=== PATIENT | male | born 1940 | race Caucasian/White ===

== ENCOUNTER 2019-11-24 14:15 | Observation (INO) | payer MEDICARE ==
[~2019-11-24] VITALS: Ht 175.3 cm; Wt 123.1 kg
[2019-11-24] MEDS: LIDODERM REMOVE PATCH NOTE XX SCH (05:00)
[~2019-11-24 14:15] MED LIST: AMOX1TAB64 PO; LIDO700A20 TD; MELA5TAB14 PO; NYST15PO2 TP; VIT1TABL89 PO
[2019-11-24 14:56] LABS: MEAN CORPUSCULAR HEMOGLOBIN 40.5 pg (27.5-34.5); MEAN CORPUSCULAR HGB CONC 32.8 g/dL (33.2-36.2); MEAN CORPUSCULAR VOLUME 123.4 fL (81-97); MEAN PLATELET VOLUME 7.5 fL (7.4-10.4); PLATELET COUNT 285 x10^3/uL (130-400); RED CELL DISTRIBUTION WIDTH 17.9 % (9.4-14.8)
[2019-11-24] MEDS ORDERED: VANCOMYCIN PER PHARMACY MC ONE (15:00)
[2019-11-24] MEDS ORDERED: CEFTRIAXONE PMX 1GM/50ML 50 ML IVPB ONE (15:00)
[2019-11-24] MEDS ORDERED: NYSTATIN OINT 15GM TP SCH (15:00)
[2019-11-24] MEDS ORDERED: NYSTATIN/TRIAMCINOLONE OINT 15GM TP SCH (15:00)
[2019-11-24] MEDS ORDERED: ACETAMINOPHEN 500 MG TABLET PO ONE (15:00)
[2019-11-24 15:10] LABS: ALBUMIN 2.7 g/dL (3.4-5.0); ANION GAP 3 mmol/L (5-15); CALCIUM 8.7 mg/dL (8.5-10.1); CHLORIDE 110 mmol/L (98-107)
[2019-11-24 15:13] LABS: ALANINE AMINOTRANSFERASE 17 U/L (12-78); ALKALINE PHOSPHATASE 61 U/L (45-117); BILIRUBIN,TOTAL 0.5 mg/dL (0.2-1.0); CREATININE 1.55 mg/dL (0.7-1.3); TOTAL PROTEIN 10.4 g/dL (6.4-8.2)
[2019-11-24] MEDS ORDERED: CEFTRIAXONE PMX 1GM/50ML 50 ML ONE (15:15)
[2019-11-24] MEDS ORDERED: ACETAMINOPHEN 500 MG TABLET ONE (15:15)
[2019-11-24 15:25] LABS: BASOPHILS # (AUTO) 0.02 x10^3/uL (0-0.1); BASOPHILS % (AUTO) 1 % (0-1); EOSINOPHILS # (AUTO) 0.19 x10^3/uL (0-0.4); EOSINOPHILS % (AUTO) 4 % (1-7); LYMPHOCYTES # (AUTO) 0.97 x10^3/uL (1-3.4); LYMPHOCYTES % (AUTO) 19 % (22-44); MD SCAN; MONOCYTES # (AUTO) 0.22 x10^3/uL (0.2-0.8); MONOCYTES % (AUTO) 4 % (2-9); NEUTROPHILS # (AUTO) 3.64 x10^3/uL (1.8-6.8); NEUTROPHILS % (AUTO) 72 % (42-75)
[2019-11-24] MEDS ORDERED: NYSTATIN/TRIAMCINOLONE OINT 15GM TP ONE (15:30)
[2019-11-24] MEDS ORDERED: PLEASE ENTER HEIGHT AND WEIGHT MC SCH (15:30)
[2019-11-24] MEDS ORDERED: NYSTATIN OINT 15GM TP ONE (15:30)
[2019-11-24] MEDS ORDERED: VANCOMYCIN 2,500 MG in SODIUM CHLORIDE 0.9% 500 ML IV ONE (16:00)
--- NOTE | 2019-11-24 16:20 | NUR ---
PT RESTING ON GURNEY. PLACED WAFFLE MATRESS UNDER PT. BARRIER CREAM APPLIED. ANTI FUNGAL CREAM HAS ALSO BEEN APPLIED.
[2019-11-24 16:27] LABS: MICROSCOPIC AUTO
[2019-11-24 16:28] LABS: CULTURE INDICATED? YES
[2019-11-24] MEDS ORDERED: ACETAMINOPHEN 325 MG TABLET PO PRN (17:00)
[2019-11-24 17:49] VITALS: BP 146/79
[2019-11-24] MEDS: CARVEDILOL 6.25 MG TABLET PO SCH (18:00)
[2019-11-24] MEDS: HEPARIN 5,000 UNITS/ML, 1ML SQ SCH (18:40)
[2019-11-24] MEDS: MELATONIN 5 MG TABLET PO SCH (20:26)
[2019-11-24] MEDS: LIDODERM 5% PATCH TD SCH (20:26)
[2019-11-24 20:40] VITALS: BP 136/80
[2019-11-24] MEDS: NYSTATIN TOPICAL POWDER 15GM TP SCH (22:12)
[2019-11-25] MEDS: HEPARIN 5,000 UNITS/ML, 1ML SQ SCH ×3 (01:59→18:04)
[2019-11-25 02:16] VITALS: BP 142/82
[2019-11-25] MEDS: NYSTATIN TOPICAL POWDER 15GM TP SCH ×4 (05:04→20:15)
[2019-11-25] MEDS: CARVEDILOL 6.25 MG TABLET PO SCH ×2 (05:05→17:55)
[2019-11-25 06:11] LABS: ANION GAP 4 mmol/L (5-15); CALCIUM 8.3 mg/dL (8.5-10.1); CHLORIDE 108 mmol/L (98-107)
[2019-11-25 06:14] LABS: % IRON SATURATION 34 % (20-55); IRON LEVEL 62 mcg/dL (65-175); TOTAL IRON BINDING CAPACITY 183 mcg/dL (250-450)
[2019-11-25 06:30] LABS: MEAN CORPUSCULAR HEMOGLOBIN 41.2 pg (27.5-34.5); MEAN CORPUSCULAR HGB CONC 33.8 g/dL (33.2-36.2); MEAN CORPUSCULAR VOLUME 121.8 fL (81-97); MEAN PLATELET VOLUME 7.8 fL (7.4-10.4); PLATELET COUNT 229 x10^3/uL (130-400); RED CELL DISTRIBUTION WIDTH 18.4 % (9.4-14.8)
[2019-11-25 07:22] VITALS: BP 147/79
[2019-11-25 07:44] LABS: MD MORPH REVIEW ONLY
[2019-11-25 07:45] LABS: ANISOCYTOSIS 1+; BASOPHILS # (AUTO) 0.04 x10^3/uL (0-0.1); BASOPHILS % (AUTO) 1 % (0-1); EOSINOPHILS # (AUTO) 0.22 x10^3/uL (0-0.4); EOSINOPHILS % (AUTO) 5 % (1-7); LYMPHOCYTES # (AUTO) 1.14 x10^3/uL (1-3.4); LYMPHOCYTES % (AUTO) 26 % (22-44); MONOCYTES # (AUTO) 0.28 x10^3/uL (0.2-0.8); MONOCYTES % (AUTO) 6 % (2-9); NEUTROPHILS # (AUTO) 2.69 x10^3/uL (1.8-6.8); NEUTROPHILS % (AUTO) 62 % (42-75); POLYCHROMASIA 1+
[2019-11-25 07:46] LABS: <PLATELET ESTIMATE> ADEQUATE; <PLT MORPHOLOGY> NORMAL PLT MORPH
[2019-11-25] MEDS: LIDODERM REMOVE PATCH NOTE XX SCH (08:30)
[2019-11-25] MEDS: MULTIVITAMIN 1 TABLET PO SCH (10:04)
[2019-11-25 13:35] VITALS: BP 148/84
[2019-11-25 20:09] VITALS: BP 154/81
[2019-11-25] MEDS: MELATONIN 5 MG TABLET PO SCH (20:15)
[2019-11-25] MEDS: LIDODERM 5% PATCH TD SCH (20:16)
[2019-11-26 02:28] VITALS: BP 133/77
[2019-11-26] MEDS: HEPARIN 5,000 UNITS/ML, 1ML SQ SCH ×3 (02:28→17:36)
[2019-11-26] MEDS: CARVEDILOL 6.25 MG TABLET PO SCH ×2 (05:13→17:36)
[2019-11-26] MEDS: NYSTATIN TOPICAL POWDER 15GM TP SCH ×4 (06:08→20:40)
[2019-11-26 06:17] LABS: MEAN CORPUSCULAR HEMOGLOBIN 41.4 pg (27.5-34.5); MEAN CORPUSCULAR HGB CONC 33.8 g/dL (33.2-36.2); MEAN CORPUSCULAR VOLUME 122.4 fL (81-97); MEAN PLATELET VOLUME 7.6 fL (7.4-10.4); PLATELET COUNT 228 x10^3/uL (130-400); RED CELL DISTRIBUTION WIDTH 18.1 % (9.4-14.8)
[2019-11-26 06:22] LABS: ANION GAP 4 mmol/L (5-15); CALCIUM 8.3 mg/dL (8.5-10.1); CHLORIDE 109 mmol/L (98-107); CREATININE 1.55 mg/dL (0.7-1.3)
[2019-11-26 06:40] LABS: BASOPHILS # (AUTO) 0.03 x10^3/uL (0-0.1); BASOPHILS % (AUTO) 1 % (0-1); EOSINOPHILS # (AUTO) 0.22 x10^3/uL (0-0.4); EOSINOPHILS % (AUTO) 8 % (1-7); LYMPHOCYTES # (AUTO) 0.97 x10^3/uL (1-3.4); LYMPHOCYTES % (AUTO) 34 % (22-44); MD SCAN; MONOCYTES # (AUTO) 0.24 x10^3/uL (0.2-0.8); MONOCYTES % (AUTO) 8 % (2-9); NEUTROPHILS # (AUTO) 1.38 x10^3/uL (1.8-6.8); NEUTROPHILS % (AUTO) 49 % (42-75)
[2019-11-26] MEDS: MULTIVITAMIN 1 TABLET PO SCH (07:41)
[2019-11-26] MEDS: LIDODERM REMOVE PATCH NOTE XX SCH (07:42)
[2019-11-26 09:16] VITALS: BP 145/80
[2019-11-26 13:11] VITALS: BP 150/81
[2019-11-26 20:00] VITALS: BP 147/84
[2019-11-26] MEDS: LIDODERM 5% PATCH TD SCH (20:39)
[2019-11-26] MEDS: MELATONIN 5 MG TABLET PO SCH (20:39)
[2019-11-27 01:51] VITALS: BP 152/82
[2019-11-27] MEDS: HEPARIN 5,000 UNITS/ML, 1ML SQ SCH ×3 (02:18→17:19)
[2019-11-27] MEDS: CARVEDILOL 6.25 MG TABLET PO SCH ×2 (06:00→17:19)
[2019-11-27] MEDS: NYSTATIN TOPICAL POWDER 15GM TP SCH ×4 (06:07→22:07)
[2019-11-27 06:31] LABS: ANION GAP 4 mmol/L (5-15); CALCIUM 8.5 mg/dL (8.5-10.1); CHLORIDE 108 mmol/L (98-107); CREATININE 1.57 mg/dL (0.7-1.3)
[2019-11-27 07:15] VITALS: BP 146/81
[2019-11-27] MEDS ORDERED: POTASSIUM CHLORIDE 20 MEQ TAB.ER.PRT PO ONE (08:00)
[2019-11-27] MEDS ORDERED: POTASSIUM CHLORIDE 20 MEQ TAB.ER.PRT ONE (08:28)
[2019-11-27] MEDS: LIDODERM REMOVE PATCH NOTE XX SCH (08:30)
[2019-11-27] MEDS: MULTIVITAMIN 1 TABLET PO SCH (08:34)
[2019-11-27] MEDS ORDERED: CARV6.2512 PO (10:27)
[2019-11-27] MEDS ORDERED: HYDR-3341 PO (10:27)
[2019-11-27 12:26] VITALS: BP 155/81
[2019-11-27 19:29] VITALS: BP 151/81
[2019-11-27] MEDS: LIDODERM 5% PATCH TD SCH (22:07)
[2019-11-27] MEDS: MELATONIN 5 MG TABLET PO SCH (22:07)
[2019-11-28 01:17] VITALS: BP 153/84
[2019-11-28] MEDS: HEPARIN 5,000 UNITS/ML, 1ML SQ SCH ×3 (04:24→17:04)
[2019-11-28] MEDS: CARVEDILOL 6.25 MG TABLET PO SCH ×2 (05:36→17:04)
[2019-11-28] MEDS: NYSTATIN TOPICAL POWDER 15GM TP SCH ×4 (06:00→22:05)
[2019-11-28 06:32] LABS: ANION GAP 6 mmol/L (5-15); CALCIUM 8.5 mg/dL (8.5-10.1); CHLORIDE 109 mmol/L (98-107); CREATININE 1.42 mg/dL (0.7-1.3)
[2019-11-28 07:01] VITALS: BP 165/90
[2019-11-28] MEDS: LIDODERM REMOVE PATCH NOTE XX SCH (08:20)
[2019-11-28] MEDS: MULTIVITAMIN 1 TABLET PO SCH (08:20)
[2019-11-28 11:59] VITALS: BP 144/76
[2019-11-28 19:01] VITALS: BP 154/80
[2019-11-28] MEDS: LIDODERM 5% PATCH TD SCH (22:14)
[2019-11-28] MEDS: MELATONIN 5 MG TABLET PO SCH (22:14)
[2019-11-29 00:59] VITALS: BP 166/79
[2019-11-29] MEDS: HEPARIN 5,000 UNITS/ML, 1ML SQ SCH (04:45)
[2019-11-29] MEDS: NYSTATIN TOPICAL POWDER 15GM TP SCH (06:00)
[2019-11-29] MEDS: CARVEDILOL 6.25 MG TABLET PO SCH (06:00)
[2019-11-29 06:05] LABS: MEAN CORPUSCULAR HGB CONC 33.7 g/dL (33.2-36.2); MEAN CORPUSCULAR VOLUME 121.4 fL (81-97); MEAN PLATELET VOLUME 7.6 fL (7.4-10.4); PLATELET COUNT 260 x10^3/uL (130-400); RED BLOOD COUNT 2.08 x10^6/uL (4.38-5.82); RED CELL DISTRIBUTION WIDTH 17.6 % (9.4-14.8)
[2019-11-29 06:13] LABS: CHLORIDE 109 mmol/L (98-107)
[2019-11-29 06:19] LABS: ANION GAP 4 mmol/L (5-15); CALCIUM 8.6 mg/dL (8.5-10.1)
[2019-11-29 06:39] LABS: BASOPHILS # (AUTO) 0.03 x10^3/uL (0-0.1); BASOPHILS % (AUTO) 1 % (0-1); EOSINOPHILS # (AUTO) 0.19 x10^3/uL (0-0.4); EOSINOPHILS % (AUTO) 5 % (1-7); LYMPHOCYTES # (AUTO) 1.35 x10^3/uL (1-3.4); LYMPHOCYTES % (AUTO) 36 % (22-44); MD SCAN; MONOCYTES # (AUTO) 0.26 x10^3/uL (0.2-0.8); MONOCYTES % (AUTO) 7 % (2-9); NEUTROPHILS # (AUTO) 1.92 x10^3/uL (1.8-6.8); NEUTROPHILS % (AUTO) 51 % (42-75)
[2019-11-29 07:49] VITALS: BP 164/81
[2019-11-29] MEDS: LIDODERM REMOVE PATCH NOTE XX SCH (08:30)
[2019-11-29] MEDS ORDERED: AMLODIPINE 5 MG TABLET PO SCH (09:30)
[2019-11-29] MEDS: MULTIVITAMIN 1 TABLET PO SCH (10:01)
[2019-11-29] MEDS ORDERED: FERROUS SULFATE 325 MG TABLET PO SCH (17:00)
== END 2019-11-29 12:55 ==
LOC: ED 15:16 → EDIP 16:07 → INTOOBSV 16:07 → 4NE 17:36
PROVIDERS: ADMIT Internal Medicine; ATTEND Internal Medicine
DX: R62.7 Adult failure to thrive (principal); G47.00 Insomnia, unspecified; E66.01 Morbid (severe) obesity due to excess calories; D64.9 Anemia, unspecified; B37.49 Other urogenital candidiasis; I12.9 Hypertensive chronic kidney disease with stage 1 through stage 4 chronic kidney disease, or unspecified chronic kidney disease; N18.3 Chronic kidney disease, stage 3 (moderate); Q05.9 Spina bifida, unspecified; L89.90 Pressure ulcer of unspecified site, unspecified stage; E83.51 Hypocalcemia; L03.312 Cellulitis of back [any part except buttock and flank]
CPT/HCPCS: 36415; 71045; 80048; 80053; 81001; 82330; 82962; 83540; 83550; 83605; 83735; 84100; 84145; 85025; 87040; 87086; 93005; 96365; 96366; 96367; 96372; 97162; 97166; 97530; 97535; 99285; G0378; J0696; J1644; J3370; J7040